=== PATIENT | female | born 1960 | race Caucasian/White ===

== ENCOUNTER 2017-04-05 13:29 | Inpatient (IN) | payer OTHER ==
[~2017-04-05] VITALS: Ht 157.5 cm; Wt 70.8 kg
[2017-04-05 13:31] VITALS: BP 126/84; PULSE 99; RESP 16; TEMP 98.4; O2SAT 98
[2017-04-05 14:12] VITALS: BP 150/88; PULSE 92; RESP 16; O2SAT 98
[2017-04-05] MEDS ORDERED: TRAZ100T6 PO (14:22)
[2017-04-05] MEDS ORDERED: CELE40TA PO (14:22)
[2017-04-05] MEDS ORDERED: PROT40TA PO (14:22)
[2017-04-05] MEDS ORDERED: XANA1TAB2 PO (14:22)
[2017-04-05] MEDS ORDERED: CYCL5TAB PO (14:22)
[2017-04-05] MEDS ORDERED: PERC10TA27 PO (14:22)
--- NOTE | 2017-04-05 14:26 | PD ---
HPI Chief Complaint: Psychiatric Symptoms Time Seen by Provider: 14:08 Travel History International Travel<30 days: No Contact w/Intl Traveler<30days: No Traveled to known affect area: No History of Present Illness HPI 56-year-old female came to the emergency room with history of depression that is there for past 2 months. She was brought in by her sister today. Sister is really concerned about her. Patient says that she feels worthless. She feels like she is not good to anybody. She is on disability. She feels like whenever she tries to do has just not worked out. Last night she was ready to locate take it to [place] even though she had no place to stay there on the way to go and would've been homeless. She feels like her sister does not want her in her house. She also tells her to go away in which case she would be homeless. Patient does not currently have any money or any asset to herself. She was tearful while she was saying this. She does not do any alcohol or drugs. She is a smoker and was recently diagnosed with emphysema. Patient is on every 4 hours of oxycodone 10 mg for her neck and back pain which is chronic. Her primary care's prescribing this to her. She says her pain is coming back. She last took her medications this morning. [facility] Past Medical History Narrative Medical List of her past medical, surgical, social and family history is reviewed from the nursing note. Bipolar Disorder: Yes Anxiety: Yes Depression: Yes Cancer: Yes (UTERINE CA) COPD: Yes Hypertension: Yes Medical other: Yes (CHRONIC BACK & NECK NERVE DAMAGE) ?: Not Menopausal: Yes Past Surgical History Other Surgery: Yes (RIGHT THUMB SURGERY / UTERINE CANCER CELLS REMOVED) Social History Alcohol Use: No Tobacco Use: Yes (1 PPD) Substance Use: Yes (20 YEARS AGO (CRACK COCAINE)) Allergies-Medications (Allergen,Severity, Reaction): Coded Allergies: tramadol (Verified Allergy, Severe, REDNESS / SWELLING, 04/05/17) Comments List of her allergies reviewed from the nursing note. Reported Meds & Prescriptions Reported Meds & Active Scripts Active Reported Trazodone (Trazodone HCl) 100 Mg Tablet 100 Mg PO HS Protonix (Pantoprazole Sodium) 40 Mg Tab 40 Mg PO DAILY Celexa (Citalopram Hydrobromide) 40 Mg Tab 40 Mg PO DAILY Percocet (Oxycodone-Acetaminophen) 10-325 mg Tab 1 Tab PO Q4H PRN Flexeril (Cyclobenzaprine HCl) 5 Mg Tab 5 Mg PO TID Xanax (Alprazolam) 1 Mg Tab 1 Mg PO Q6H PRN Narrative Medication List of her home medications reviewed from the nursing note. Review of Systems Except as stated in HPI: all other systems reviewed are Neg Psychiatric: Positive: Depression Physical Exam Narrative GENERAL: Awake, alert, tearful SKIN: Focused skin assessment warm/dry. HEAD: Atraumatic. Normocephalic. EYES: Pupils equal and round. No scleral icterus. No injection or drainage. ENT: No nasal bleeding or discharge. Mucous membranes pink and moist. NECK: Trachea midline. No JVD. CARDIOVASCULAR: Regular rate and rhythm. No murmur appreciated. RESPIRATORY: No accessory muscle use. Clear to auscultation. Breath sounds equal bilaterally. GASTROINTESTINAL: Abdomen soft, non-tender, nondistended. Hepatic and splenic margins not palpable. MUSCULOSKELETAL: No obvious deformities. No clubbing. No cyanosis. No edema. NEUROLOGICAL: Awake and alert. No obvious cranial nerve deficits. Motor grossly within normal limits. Normal speech. PSYCHIATRIC: Appropriate mood and affect; insight and judgment normal. Data Data Last Documented VS Vital Signs Date Time Temp Pulse Resp B/P (MAP) Pulse Ox O2 Delivery O2 Flow Rate FiO2 04/05/17 14:12 92 16 150/88 (108) 98 Room Air 04/05/17 13:31 98.4 Orders Orders Complete Blood Count With Diff (04/05/17 14:36) Comprehensive Metabolic Panel (04/05/17 14:36) Psych Screen (04/05/17 14:36) Drug Screen, Random Urine (04/05/17 14:36) Acetamin-Hydrocod 325-5 Mg ([place] 5-325 (04/05/17 15:00) Diet Regular Basic (04/05/17 Dinner) Labs Laboratory Tests Test 04/05/17 14:50 04/05/17 15:00 White Blood Count 7.6 TH/MM3 Red Blood Count 5.35 MIL/MM3 Hemoglobin 15.4 GM/DL Hematocrit 45.6 % Mean Corpuscular Volume 85.1 FL Mean Corpuscular Hemoglobin 28.8 PG Mean Corpuscular Hemoglobin Concent 33.8 % Red Cell Distribution Width 13.8 % Platelet Count 235 TH/MM3 Mean Platelet Volume 6.9 FL Neutrophils (%) (Auto) 64.2 % Lymphocytes (%) (Auto) 27.2 % Monocytes (%) (Auto) 6.5 % Eosinophils (%) (Auto) 1.5 % Basophils (%) (Auto) 0.6 % Neutrophils # (Auto) 4.9 TH/MM3 Lymphocytes # (Auto) 2.1 TH/MM3 Monocytes # (Auto) 0.5 TH/MM3 Eosinophils # (Auto) 0.1 TH/MM3 Basophils # (Auto) 0.0 TH/MM3 CBC Comment DIFF FINAL Differential Comment Blood Urea Nitrogen 11 MG/DL Creatinine 0.64 MG/DL Random Glucose 91 MG/DL Total Protein 7.3 GM/DL Albumin 4.1 GM/DL Calcium Level 9.3 MG/DL Alkaline Phosphatase 53 U/L Aspartate Amino Transf (AST/SGOT) 9 U/L Alanine Aminotransferase (ALT/SGPT) 12 U/L Total Bilirubin 0.4 MG/DL Sodium Level 139 MEQ/L Potassium Level 4.1 MEQ/L Chloride Level 106 MEQ/L Carbon Dioxide Level 27.2 MEQ/L Anion Gap 6 MEQ/L Estimat Glomerular Filtration Rate 96 ML/MIN Urine Opiates Screen NEG Urine Barbiturates Screen NEG Urine Amphetamines Screen NEG Urine Benzodiazepines Screen POS Urine Cocaine Screen NEG Urine Cannabinoids Screen NEG MDM Medical Decision Making Medical Screen Exam Complete: Yes Emergency Medical Condition: Yes Medical Record Reviewed: Yes Differential Diagnosis Depression, worthlessness Narrative Course 3:11 PM awaiting for blood test results for medical clearance. When she is medically cleared she'll require psych screening. Procedures EKG Prior to Arrival: Patricia Burkett MD Apr 05, 2017 14:26
[2017-04-05] MEDS ORDERED: ACETAMINOPHEN/HYDROcodone 325 MG/5 MG TAB PO ONE (15:00)
[2017-04-05 15:18] LABS: AUTOMATED NEUTROPHIL # 4.9 TH/MM3 (1.8-7.7); BASOPHIL % 0.6 % (0.0-2.0); EOSINOPHIL # 0.1 TH/MM3 (0-0.4); EOSINOPHIL % 1.5 % (0.0-4.0); HEMATOCRIT 45.6 % (35.0-46.0); HEMO FLAGS DIFF FINAL; LYMPH % 27.2 % (9.0-44.0); LYMPHOCYTE # 2.1 TH/MM3 (1.0-4.8); MEAN CELL VOLUME 85.1 FL (80.0-100.0); MEAN CORPUSCULAR HEMOGLOBIN 28.8 PG (27.0-34.0); MEAN CORPUSCULAR HGB CONC 33.8 % (32.0-36.0); MONO % 6.5 % (0.0-8.0); NEUT % 64.2 % (16.0-70.0); PLATELET COUNT 235 TH/MM3 (150-450); RED BLOOD COUNT 5.35 MIL/MM3 (4.00-5.30); RED CELL DISTRIBUTION WIDTH 13.8 % (11.6-17.2); WHITE BLOOD COUNT 7.6 TH/MM3 (4.0-11.0)
[2017-04-05 15:32] LABS: ANION GAP 6 MEQ/L (5-15); AST (GOT) 9 U/L (15-37); BICARBONATE 27.2 MEQ/L (21.0-32.0); BLOOD UREA NITROGEN 11 MG/DL (7-18); CHLORIDE 106 MEQ/L (98-107); GLOMERULAR FILTRATION RATE 96 ML/MIN (>89); POTASSIUM 4.1 MEQ/L (3.5-5.1); SODIUM (NA) 139 MEQ/L (136-145)
[2017-04-05 15:36] LABS: ALKALINE PHOSPHATASE 53 U/L (45-117); ALT (GPT) 12 U/L (10-53); TOTAL BILIRUBIN ADULT 0.4 MG/DL (0.2-1.0)
[2017-04-05 18:32] VITALS: BP 104/73; PULSE 85; RESP 16; O2SAT 95
[2017-04-05 19:12] VITALS: BP 104/72; PULSE 74; RESP 14; O2SAT 95
[2017-04-05 20:42] VITALS: BP 101/77; PULSE 72; RESP 16; TEMP 98.8
[2017-04-05] MEDS ORDERED: oxyCODONE/ACETAMINOPHEN 10 MG/325 MG TAB PO ONE (21:30)
[2017-04-05] MEDS ORDERED: traZODone HCL 100 MG TAB PO ONE (21:30)
[2017-04-05] MEDS ORDERED: ACETAMINOPHEN 325 MG TAB PO PRN (21:45)
[2017-04-05] MEDS ORDERED: LORazepam 2 MG/ML VIAL IM PRN (21:45)
[2017-04-05] MEDS ORDERED: ALUMINUM/MAGNESIUM/SIMETH 30 ML CUP PO PRN (21:45)
[2017-04-05] MEDS ORDERED: MAGNESIUM HYDROXIDE SUSP 30 ML CUP PO PRN (21:45)
[2017-04-05] MEDS ORDERED: BENZTROPINE MESYLATE 1 MG TAB PO PRN (21:45)
[2017-04-05] MEDS ORDERED: BENZTROPINE MESYLATE 2 MG/2 ML VIAL IM PRN (21:45)
[2017-04-05] MEDS ORDERED: PILL SPLITTER OTHER PRN (22:00)
[2017-04-05 23:46] VITALS: BP 117/88; PULSE 75; RESP 18; TEMP 97.8; O2SAT 98
[2017-04-06 05:00] VITALS: BP 103/64; PULSE 75; RESP 16; TEMP 97.8; O2SAT 96
[2017-04-06] MEDS: REMOVE OLD PATCH T-DERMAL SCH (09:00)
[2017-04-06 09:06] LABS: HDL CHOLESTEROL 43.7 MG/DL (40.0-60.0); LDL CHOLESTEROL 161 MG/DL (0-99)
[2017-04-06] MEDS: NICOTINE 21 MG/24 HR PATCH T-DERMAL SCH (09:31)
[2017-04-06] MEDS: PANTOPRAZOLE SOD 40 MG DELAYED RELEASE TAB PO SCH (09:31)
[2017-04-06] MEDS: CYCLOBENZAPRINE HCL 10 MG TAB PO SCH ×3 (09:31→17:01)
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
[2017-04-06] MEDS: oxyCODONE/ACETAMINOPHEN 10 MG/325 MG TAB PO PRN ×2 (11:18→17:00)
[2017-04-06 11:27] LABS: HEMOGLOBIN A1b 0.9 %; HEMOGLOBIN Ao 85.6 %; HEMOGLOBIN LA1C 2.1 %; HEMOGLOBIN P3 3.6 %
[2017-04-06] MEDS: LITHIUM CARBONATE 300 MG TAB PO SCH ×2 (12:47→20:40)
[2017-04-06] MEDS: CITALOPRAM HYDROBROMIDE 40 MG TAB PO SCH (12:47)
[2017-04-06] MEDS: LORazepam 1 MG TAB PO PRN ×2 (14:36→20:41)
[2017-04-06] MEDS: traZODone HCL 100 MG TAB PO SCH (20:40)
[2017-04-07] MEDS: oxyCODONE/ACETAMINOPHEN 10 MG/325 MG TAB PO PRN ×4 (00:08→17:07)
[2017-04-07 05:10] VITALS: BP 146/97; PULSE 87; RESP 18; TEMP 98.3; O2SAT 96
[2017-04-07] MEDS: CITALOPRAM HYDROBROMIDE 40 MG TAB PO SCH (08:22)
[2017-04-07] MEDS: PANTOPRAZOLE SOD 40 MG DELAYED RELEASE TAB PO SCH (08:22)
[2017-04-07] MEDS: LITHIUM CARBONATE 300 MG TAB PO SCH ×2 (08:23→20:31)
[2017-04-07] MEDS: CYCLOBENZAPRINE HCL 10 MG TAB PO SCH ×3 (08:23→17:06)
[2017-04-07] MEDS: REMOVE OLD PATCH T-DERMAL SCH (08:24)
[2017-04-07] MEDS: NICOTINE 21 MG/24 HR PATCH T-DERMAL SCH (08:24)
--- NOTE | 2017-04-07 13:42 | HHI.PYPN ---
Subjective Chief Complaint: Depression Remarks Pt seen and discussed with staff. She reports depression is improving. She remains disheveled and isolates to her room. She is compliant wiht medications and denies side effects. Mental Status Examination Appearance: Disheveled Consciousness: Alert Orientation: x4 Motor Activity: Other (no motor abnormalities noted) Speech: Unremarkable Language: Adequate Fund of Knowledge: Adequate Attention and Concentration: Adequate Memory: Unremarkable (grossly intact on clinical exam) Mood: Other (depressed) Affect: Other (restricted) Thought Process & Associations: Logical, Linear Hallucination Type: None Delusion Type: None Suicidal Ideation: No (denies today) Suicidal Plan: No Suicidal Intention: No Homicidal Ideation: No Homicidal Plan: No Homicidal Intention: No Insight: Poor Judgment: Poor Results Vitals/IOs Vital Signs Date Time Temp Pulse Resp B/P (MAP) Pulse Ox O2 Delivery O2 Flow Rate FiO2 04/07/17 05:10 98.3 87 18 146/97 (113) 96 04/05/17 19:12 Room Air Assessment & Plan Problem List: (1) Major depressive disorder, recurrent severe without psychotic features ICD Codes: F33.2 - Major depressive disorder, recurrent severe without psychotic features Assessment & Plan Continue current tx plan Estimated LOS: days Justification for Cont. Inpt. monitoring for safety Request HC Surrog/Guard Advoc?: Jackie De León MD Apr 07, 2017 13:42
[2017-04-07 17:00] VITALS: BP 125/80; PULSE 81; RESP 17; TEMP 98.4; O2SAT 97
[2017-04-07] MEDS: traZODone HCL 100 MG TAB PO SCH (20:31)
[2017-04-08] MEDS: oxyCODONE/ACETAMINOPHEN 10 MG/325 MG TAB PO PRN ×2 (03:28→09:34)
[2017-04-08 05:52] VITALS: BP 112/84; PULSE 76; RESP 17; TEMP 97.6; O2SAT 97
[2017-04-08] MEDS: CYCLOBENZAPRINE HCL 10 MG TAB PO SCH ×2 (08:47→12:47)
[2017-04-08] MEDS: LITHIUM CARBONATE 300 MG TAB PO SCH (08:47)
[2017-04-08] MEDS: PANTOPRAZOLE SOD 40 MG DELAYED RELEASE TAB PO SCH (08:47)
[2017-04-08] MEDS: CITALOPRAM HYDROBROMIDE 40 MG TAB PO SCH (08:48)
[2017-04-08] MEDS: REMOVE OLD PATCH T-DERMAL SCH (08:51)
[2017-04-08] MEDS: NICOTINE 21 MG/24 HR PATCH T-DERMAL SCH (08:51)
[2017-04-08] MEDS ORDERED: LITH300T3 PO (10:53)
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
== END 2017-04-08 13:50 | disposition home or self-care (01) | DRG 885 ==
LOC: NEPD 13:29 → NEDA 21:33 → H260 22:20 → H270 04-06 13:15
PROVIDERS: ADMIT Psychiatry & Neurology Psychiatry; ATTEND Psychiatry & Neurology Psychiatry
DX: F33.2 Major depressive disorder, recurrent severe without psychotic features (principal); R45.851 Suicidal ideations; I10 Essential (primary) hypertension; F43.10 Post-traumatic stress disorder, unspecified; F43.25 Adjustment disorder with mixed disturbance of emotions and conduct; F60.89 Other specific personality disorders; F41.1 Generalized anxiety disorder; G89.29 Other chronic pain; J44.9 Chronic obstructive pulmonary disease, unspecified; F17.200 Nicotine dependence, unspecified, uncomplicated; Z59.0 Homelessness; Z79.899 Other long term (current) drug therapy; Z81.8 Family history of other mental and behavioral disorders; Z85.42 Personal history of malignant neoplasm of other parts of uterus; Z91.5 Personal history of self-harm
CPT/HCPCS: 80053; 80061; 80307; 83036; 84443; 85025